=== PATIENT | male | born 1950 | race Hispanic/Latino ===

== ENCOUNTER → 2022-07-26 | Outpatient (CLI) | payer OTHER | END | disposition home or self-care (01) | LOC: CANPRECLI → RAH 15:42 | PROVIDERS: ATTEND Internal Medicine | DX: I20.9 Angina pectoris, unspecified (principal); R06.02 Shortness of breath; G31.89 Other specified degenerative diseases of nervous system | CPT/HCPCS: 70450 ==

== ENCOUNTER → 2022-08-02 | Outpatient (CLI) | payer OTHER | END | disposition home or self-care (01) | LOC: SHCH 13:14 → EDUNIT# 13:30 | PROVIDERS: ATTEND Internal Medicine Cardiovascular Disease | DX: I20.9 Angina pectoris, unspecified (principal); R06.00 Dyspnea, unspecified; E11.9 Type 2 diabetes mellitus without complications; E78.5 Hyperlipidemia, unspecified; I10 Essential (primary) hypertension | CPT/HCPCS: 93306 ==

== ENCOUNTER 2022-09-03 17:06 | Observation (INO) | payer OTHER ==
[~2022-09-03] VITALS: Ht 167.6 cm; Wt 78.3 kg
[2022-09-03] MEDS ORDERED: MORPHINE 4 MG SYG IVP ONE (18:00)
[2022-09-03] MEDS ORDERED: ONDANSETRON 4MG INJ IVP ONE (18:00)
[2022-09-03 18:23] LABS: BASOPHILS % (AUTO) 0.4 % (0.0-5.0); EOSINOPHILS % (AUTO) 0.4 % (0.0-8.0); HEMATOCRIT 40.7 % (42-54); LYMPHOCYTES % (AUTO) 26.8 % (21.0-51.0); MEAN CORPUSCULAR HEMOGLOBIN 29.7 pg (27.0-33.0); MEAN CORPUSCULAR HGB CONC 34.6 g/dL (32.0-36.0); MEAN CORPUSCULAR VOLUME 85.9 fL (79-99); MONOCYTES % (AUTO) 6.2 % (3.0-13.0); NEUTROPHILS % (AUTO) 65.3 % (40.0-77.0); PLATELET COUNT (AUTO) 229 K/uL (130-400); RED BLOOD CELL COUNT(AUTO) 4.74 MIL/uL (4.50-6.20); RED CELL DISTRIBUTION WIDTH 13.3 % (11.0-15.5); WHITE BLOOD COUNT (AUTO) 9.9 K/uL (4.8-10.8)
[2022-09-03 18:59] LABS: CREATININE 0.8 mg/dL (0.5-1.5); POTASSIUM 4.1 mmol/L (3.5-5.1)
[2022-09-03] MEDS ORDERED: HYDROMORPHONE 0.5 MG SYG (0.5MG/0.5ML) IVP ONE ×3 (19:00→20:00)
[2022-09-03 19:04] LABS: ALBUMIN 4.2 g/dL (3.5-5.0); TOTAL PROTEIN, SERUM 7.4 g/dL (6.0-8.3)
[2022-09-03] MEDS ORDERED: HYDRALAZINE 20MG/ML VIAL IV PRN (20:00)
[2022-09-03] MEDS ORDERED: TEMAZEPAM 15 MG CAPSULE PO PRN (20:00)
[2022-09-03] MEDS ORDERED: HYDROCODONE/ACETAMINOPHEN 5/325 MG TAB PO PRN (20:00)
[2022-09-03] MEDS ORDERED: CLONIDINE HCL 0.1 MG TABLET PO PRN (20:00)
[2022-09-03] MEDS ORDERED: ONDANSETRON 4MG INJ IVP PRN (20:00)
[2022-09-03] MEDS ORDERED: ACETAMINOPHEN 325 MG TAB PO PRN (20:00)
[2022-09-03] MEDS ORDERED: KETOROLAC 30MG VIAL (30MG/ML) ONE (20:13)
[2022-09-03] MEDS ORDERED: LORAZEPAM 2 MG/ML 1 ML VIAL ONE (20:13)
[2022-09-03] MEDS ORDERED: LORAZEPAM 2 MG/ML 1 ML VIAL IM PRN (20:30)
[2022-09-03] MEDS ORDERED: KETOROLAC 30MG VIAL (30MG/ML) IVP ONE (20:30)
[2022-09-03] MEDS: INSULIN HUMULIN R 100 UNIT/ML 3ML SQ SCH (21:00)
[2022-09-03] MEDS: ZOSYN 3.375GM +NS 50ML IV SCH (21:38)
[2022-09-03] MEDS: FAMOTIDINE 20MG TAB PO SCH (21:38)
[2022-09-03] MEDS ORDERED: GABAPENTIN 100 MG CAPSULE PO SCH (22:30)
[2022-09-03] MEDS: 0.9%NACL 1000ML 1,000 ML IV SCH (22:54)
[2022-09-03 23:00] VITALS: BP 165/104
[2022-09-03] MEDS ORDERED: AMITRIPTYLINE 25 MG TABLET PO ONE (23:00)
[2022-09-03] MEDS: ACYCLOVIR 800 MG TABLET PO ONE (23:05)
[2022-09-04] MEDS: KETOROLAC 15MG/ML VIAL (15MG/ML) IV PRN ×3 (01:23→15:38)
[2022-09-04] MEDS: ACYCLOVIR 800 MG TABLET PO ONE (01:23)
[2022-09-04 04:00] VITALS: BP 162/94
[2022-09-04] MEDS: ZOSYN 3.375GM +NS 50ML IV SCH ×3 (05:15→20:12)
[2022-09-04 05:48] LABS: HEMATOCRIT 39.5 % (42-54); MEAN CORPUSCULAR HEMOGLOBIN 29.7 pg (27.0-33.0); MEAN CORPUSCULAR HGB CONC 33.9 g/dL (32.0-36.0); MEAN CORPUSCULAR VOLUME 87.6 fL (79-99); RED BLOOD CELL COUNT(AUTO) 4.51 MIL/uL (4.50-6.20); RED CELL DISTRIBUTION WIDTH 13.5 % (11.0-15.5); WHITE BLOOD COUNT (AUTO) 9.3 K/uL (4.8-10.8)
[2022-09-04] MEDS: INSULIN HUMULIN R 100 UNIT/ML 3ML SQ SCH ×4 (06:07→20:09)
[2022-09-04 06:11] LABS: CREATININE 0.8 mg/dL (0.5-1.5); MAGNESIUM 1.9 mg/dL (1.80-2.40); PHOSPHORUS 3.6 mg/dL (2.5-4.9); POTASSIUM 4.2 mmol/L (3.5-5.1)
[2022-09-04 07:55] VITALS: BP 135/80
[2022-09-04] MEDS: ENOXAPARIN SODIUM 30 MG/0.3 ML SQ SCH (08:56)
[2022-09-04] MEDS: ACYCLOVIR 800 MG TABLET PO SCH ×3 (08:56→20:12)
[2022-09-04] MEDS: FAMOTIDINE 20MG TAB PO SCH ×2 (08:56→20:12)
[2022-09-04] MEDS: GABAPENTIN 100 MG CAPSULE PO SCH ×3 (08:56→20:12)
[2022-09-04] MEDS: MORPHINE 2 MG SYG IVP PRN (10:27)
[2022-09-04 11:05] VITALS: BP 131/81
[2022-09-04] MEDS: 0.9%NACL 1000ML 1,000 ML IV SCH (12:52)
[2022-09-04 16:10] VITALS: BP 136/73
[2022-09-04 19:00] VITALS: BP 133/81
[2022-09-04] MEDS ORDERED: AMITRIPTYLINE 25 MG TABLET PO SCH (21:00)
[2022-09-04 23:48] VITALS: BP 108/69
[2022-09-05] MEDS: KETOROLAC 15MG/ML VIAL (15MG/ML) IV PRN ×3 (00:10→14:24)
[2022-09-05] MEDS: 0.9%NACL 1000ML 1,000 ML IV SCH (01:20)
[2022-09-05 04:00] VITALS: BP 130/56
[2022-09-05] MEDS: ZOSYN 3.375GM +NS 50ML IV SCH ×2 (04:51→13:00)
[2022-09-05] MEDS: MORPHINE 2 MG SYG IVP PRN (04:52)
[2022-09-05] MEDS: INSULIN HUMULIN R 100 UNIT/ML 3ML SQ SCH ×2 (06:17→11:30)
[2022-09-05 08:00] VITALS: BP 146/84
[2022-09-05] MEDS: FAMOTIDINE 20MG TAB PO SCH (08:18)
[2022-09-05] MEDS: GABAPENTIN 100 MG CAPSULE PO SCH ×2 (08:19→14:22)
[2022-09-05] MEDS: ENOXAPARIN SODIUM 30 MG/0.3 ML SQ SCH (08:22)
[2022-09-05] MEDS: ACYCLOVIR 800 MG TABLET PO SCH ×2 (08:39→14:21)
[2022-09-05 11:06] VITALS: BP 120/77
[2022-09-05] MEDS ORDERED: GABA100C PO (15:42)
[2022-09-05] MEDS ORDERED: AMIT25TA9 PO (15:42)
[2022-09-05] MEDS ORDERED: ACYC-138 PO (15:42)
[2022-09-05] MEDS ORDERED: CEPH500B PO (15:42)
== END 2022-09-05 17:00 | disposition home or self-care (01) ==
LOC: EDH 17:06 → EDHIP 19:48 → 4CH 22:41 → 4DH 09-04 04:48
PROVIDERS: ADMIT Internal Medicine Critical Care Medicine; ATTEND Internal Medicine Critical Care Medicine
DX: B02.29 Other postherpetic nervous system involvement (principal); L03.211 Cellulitis of face; I10 Essential (primary) hypertension; E11.65 Type 2 diabetes mellitus with hyperglycemia; Z79.899 Other long term (current) drug therapy
CPT/HCPCS: 96376 ×3; 96365; 96375 ×2; 99284; 80053; 85025; 82948 ×7; 36415 ×2; 71045; 96372 ×2; 96366; 83735; 84100; 80048; 85027; 97161; G0378 ×44; J2405 ×2; J2060 ×2; J2270; J1885 ×7; J2543 ×5; J1170 ×2; J1650 ×2

== ENCOUNTER 2023-09-02 11:49 | Emergency (ER) | payer OTHER ==
[~2023-09-02] VITALS: Ht 160 cm; Wt 80.7 kg
[~2023-09-02 11:49] MED LIST: ACYC-138 PO; AMIT25TA9 PO; CEPH500B PO; GABA100C PO
[2023-09-02 12:36] LABS: BASOPHILS # (AUTO) 0.06 K/uL (0.00-0.20); BASOPHILS % (AUTO) 0.7 % (0.0-5.0); EOSINOPHILS # (AUTO) 0.09 K/uL (0.00-0.70); HEMATOCRIT 41.9 % (42-54); IMMATURE GRANULOCYTE ABSOLUTE 0.03 K/uL (0-1); LYMPHOCYTES # (AUTO) 2.3 K/uL (1.0-4.8); LYMPHOCYTES % (AUTO) 25.6 % (21.0-51.0); MEAN CORPUSCULAR HEMOGLOBIN 28.8 pg (27.0-33.0); MEAN CORPUSCULAR HGB CONC 33.7 g/dL (32.0-36.0); MEAN CORPUSCULAR VOLUME 85.5 fL (79-99); MONOCYTES # (AUTO) 0.5 K/uL (0.1-1.0); MONOCYTES % (AUTO) 5.4 % (3.0-13.0); NEUTROPHILS # (AUTO) 5.9 K/uL (1.8-7.7); PLATELET COUNT (AUTO) 397 K/uL (130-400); RED CELL DISTRIBUTION WIDTH 12.6 % (11.0-15.5); WHITE BLOOD COUNT (AUTO) 8.8 K/uL (4.8-10.8)
[2023-09-02 12:40] LABS: CREATININE 1.1 mg/dL (0.5-1.5)
[2023-09-02 12:44] LABS: INR < 0.93 (0.85-1.15); PROTHROMBIN TIME 10.8 SEC (9.6-11.6)
[2023-09-02 12:45] LABS: PARTIAL THROMBOPLASTIN TIME 29.2 SEC (26.3-35.5)
[2023-09-02] MEDS ORDERED: IOHEXOL 350 MG/ML 100ML INFUS..BTL IV ONE (12:45)
[2023-09-02 12:51] LABS: BILIRUBIN,TOTAL 0.6 mg/dL (0.2-1.0); TOTAL PROTEIN, SERUM 8.6 g/dL (6.0-8.3)
[2023-09-02] MEDS ORDERED: ASPIRIN 325MG TAB PO ONE (13:00)
[2023-09-02 13:21] LABS: B-TYPE NATRIURETIC PEPTIDE 7 pg/mL (0-100)
[2023-09-02 13:46] LABS: APPEARANCE,URINE CLEAR (CLEAR); BILIRUBIN,URINE NEGATIVE (NEGATIVE); COLOR,URINE LIGHT-YELLOW (YELLOW); GLUCOSE, URINE (UA) NEGATIVE (NEGATIVE); KETONES,URINE NEGATIVE (NEGATIVE); LEUKOCYTE ESTERASE ,URINE NEGATIVE Leu/uL (NEGATIVE); NITRATE,URINE NEGATIVE (NEGATIVE); OCCULT BLOOD,URINE NEGATIVE (NEGATIVE); PROTEIN,URINE NEGATIVE (NEGATIVE); UROBILINOGEN,URINE 0.2 mg/dL (0.2-1.0)
[2023-09-02 14:23] LABS: ADD UA MICROSCOPIC NO
[2023-09-02] MEDS ORDERED: MORPHINE 2 MG SYG IVP ONE (18:30)
[2023-09-02] MEDS ORDERED: 0.9%NACL 1000ML 1,000 ML IV ONE (18:30)
[2023-09-02 20:30] VITALS: BP 133/80; PULSE 74; RESP 12; O2SAT 98
== END 2023-09-02 21:12 | disposition short-term general hospital (02) ==
LOC: EDH 11:49
DX: I63.89 Other cerebral infarction (principal); E11.9 Type 2 diabetes mellitus without complications; Z79.899 Other long term (current) drug therapy; Z98.890 Other specified postprocedural states
CPT/HCPCS: 99285; 70496; 96374; 71045; 96361 ×2; 70498; 82550; 83721; 84484; 80053; 83880; 85025; 85610; 85730; 82948; 81003; 36415; 93005; 70450; J2270; Q9967